=== PATIENT | female | born 1955 | race Caucasian/White ===

== ENCOUNTER 2018-01-29 08:43 | Emergency (ER) | payer SELFPAY ==
[2018-01-29 09:09] LABS: HEMATOCRIT 45.2 % (37.0-47.0); HEMOGLOBIN 14.7 g/dl (12.0-16.0); IMMATURE GRANULOCYTES 1.1 % (0.0-1.0); MEAN CELL VOLUME 87.6 fL CALC (80.0-100.0); MEAN CORPUSCULAR HGB 28.5 pG CALC (26.0-32.0); MEAN CORPUSCULAR HGB CONC 32.5 g/L CALC (32.0-36.0); NEUT# 6.07 thou/uL (2.00-7.15); RED BLOOD COUNT 5.16 mill/uL (4.20-5.60)
[2018-01-29] MEDS ORDERED: ANORO ELLIPTA 61 AER IN (09:13)
[2018-01-29] MEDS ORDERED: PROAIR HFA IN (09:14)
[2018-01-29 09:24] LABS: ALBUMIN 4.2 g/dL (3.2-5.0); ALKALINE PHOSPHATASE 155 u/l (38-126); ANION GAP 19 (6-22 (CALC)); BILIRUBIN, TOTAL 0.7 mg/dL (0.0-1.4); BUN 14 mg/dL (8-23); BUN/CREATININE RATIO 23 (12-20 (CALC)); CARBON DIOXIDE 25 mmol/l (22-30); CHLORIDE 98 mmol/l (95-108); CREATININE 0.6 mg/dL (0.5-1.0); GFR > 60 ML/MIN (>=60 (CALC)); GFR FOR AFR.AMER. > 60 ML/MIN (>=60 (CALC)); SGOT/AST 58 u/l (9-36); SGPT/ALT 79 u/l (11-66); SODIUM 138 mmol/l (137-146); TOTAL PROTEIN 7.5 g/dL (6.3-8.2)
[2018-01-29] MEDS ORDERED: DOXYCYCL HYC100 MG PO (10:13)
[2018-01-29] MEDS ORDERED: STERAPRED DS10 MG PO (10:13)
[2018-01-29 10:32] VITALS: BP 125/66
== END 2018-01-29 10:32 | disposition home or self-care (01) | DRG 192 ==
LOC: ED 08:43
PROVIDERS: Family Medicine
DX: J44.1 Chronic obstructive pulmonary disease with (acute) exacerbation (principal); G50.0 Trigeminal neuralgia; Z87.891 Personal history of nicotine dependence